=== PATIENT | male | born 1945 | race Caucasian/White ===

== ENCOUNTER → 2016-07-12 | Outpatient (REF) | payer MEDICARE, OTHER ==
[2016-07-12 12:29] LABS: BASO % 0.8 % (0.0-1.0); EOS # 0.2 K/mm3 (0.0-0.50); EOS % 2.6 % (0.0-3.0); LARGE UNSTAINED CELL # 0.1 K/mm3 (0.0-0.4); LARGE UNSTAINED CELL % 2.1 % (0.0-4.0); LYMPH # 1.5 K/mm3 (1.5-4.5); LYMPH % 20.6 % (24.0-44.0); MEAN CORPUSCULAR HEMOGLOBIN 32.8 pg (27.0-33.0); MEAN CORPUSCULAR HGB CONC 33.8 g/dl (32.0-36.5); MONO # 0.5 K/mm3 (0.0-0.8); MONO % 7.7 % (0.0-5.0); NEUTROPHILS # 4.3 K/mm3 (1.8-7.7); NEUTROPHILS % 66.1 % (36.0-66.0); PLATELET COUNT, AUTOMATED 247 k/mm3 (150-450); WHITE BLOOD COUNT 6.5 K/mm3 (4.0-10.0)
[2016-07-12 13:13] LABS: VITAMIN B12 LEVEL 375 PG/ML (247-911)
[2016-07-12 13:16] LABS: CHOLESTEROL LEVEL 165 MG/DL (<200); TOTAL PROTEIN 6.9 GM/DL (6.4-8.2); TRIGLYCERIDES LEVEL 83 MG/DL (<150)
[2016-07-17 11:50] LABS: ALBUMIN % 55.1 % (55.8-66.1); GAMMA GLOBULIN % 17.3 % (11.1-18.8)
== END ==
LOC: M SFHCPLAZ 09:57
PROVIDERS: ATTEND Family Medicine
DX: D50.9 Iron deficiency anemia, unspecified (principal); E78.5 Hyperlipidemia, unspecified

== ENCOUNTER → 2016-08-07 | Outpatient (CLI) | payer MEDICARE, OTHER ==
--- NOTE | 2016-08-10 15:00 | SLEEPHOME ---
DATE OF PROCEDURE: 08/07/2016 REFERRING PROVIDER: Dr. Geoff Downs INTERPRETATION: Diagnostic home sleep testing was performed due to concern for the obstructive sleep apnea syndrome. For testing, a NOX-T3 respiratory monitoring device was used. Continuous record was made of pulse, oxygen saturation, air flow, chest and abdominal strain, and body position. 8 hours and 31 minutes of data were reviewed. There were 7 hours and 23 minutes marked as time in bed. During the interval marked time in bed, there were 252 respiratory events identified of 10 seconds in duration or greater for a respiratory event index of 34.1. The events were more frequently central than obstructive. 110 central events, 91 obstructive events for a respiratory event index of 34.1. Baseline pulse rate was 57 beats per minute. Pulse rate ranged 43 to 80. Baseline saturation was 90%. Lowest oxygen saturation 76%. Testing was performed in both the supine and non-supine positions. IMPRESSION: Abnormal home sleep testing with repetitive respiratory events and oxygen desaturations to 76% with a respiratory event index of 34.1 is consistent with the sleep apnea syndrome. RECOMMENDATION: Given the frequency of central events, complex central apnea is suspected. The patient should be referred for formal sleep evaluation and in laboratory diagnostic testing to assess the significance of the central events appreciated. Pending this result, pressure titration with bilevel therapy and a backup rate may be necessary. MTDD
== END ==
LOC: M SLEEP HO 08:38
PROVIDERS: ATTEND Family Medicine
DX: G47.33 Obstructive sleep apnea (adult) (pediatric) (principal)

== ENCOUNTER → 2016-09-26 | Outpatient (CLI) | payer MEDICARE, OTHER ==
--- NOTE | 2016-09-30 12:32 | SLEEPCENT ---
DATE OF STUDY: 09/26/2016 ORDERED BY: Elizabeth Saleh Nocturnal polysomnography was performed for the titration of pressure therapy in this patient with a history of obstructive sleep apnea syndrome based on clinical grounds and confirmed by home testing which revealed a respiratory event index of 34.1. For testing, the patient was fit with a ResMed P10 AirFit full face mask of large size and 5 cm of water pressure were applied to the circuit and the lights were extinguished. 8 hours and 33 minutes of data were reviewed. There were 379 minutes of sleep identified. Sleep latency was short at 12 minutes. Rapid eye movement (REM) latency was delayed at 211 minutes. Sleep architecture improved with optimal pressure therapy. There were 3 REM periods appreciated. Overall sleep efficiency was 74.8%. The patient's electrocardiogram (EKG) showed an underlying sinus rhythm with ectopy and average heart rate 58 beats per minute. Electroencephalogram (EEG) showed reasonably normal waveforms for awake and sleep. Respiratory events were fully palliated with CPAP at a pressure of +9. CPAP tolerance was good. There was some limb activity and limb movement arousal index was 4.3. IMPRESSION: Obstructive sleep apnea (G47.33). RECOMMENDATION: Nightly use of pressure therapy at 9 cm of water.
== END ==
LOC: M SLEEP 19:20
PROVIDERS: ATTEND Nurse Practitioner Adult Health
DX: G47.33 Obstructive sleep apnea (adult) (pediatric) (principal)

== ENCOUNTER → 2016-10-10 | Outpatient (REF) | payer MEDICARE, OTHER | LOC: M SFHCPLAZ 10:13 | PROVIDERS: ATTEND Physician Assistant Medical | DX: G62.9 Polyneuropathy, unspecified (principal); M79.605 Pain in left leg; Z79.82 Long term (current) use of aspirin; Z79.899 Other long term (current) drug therapy | CPT/HCPCS: 36415; 83036; G0463 ==

== ENCOUNTER → 2016-10-11 | Outpatient (CLI) | payer MEDICARE, OTHER ==
--- NOTE | 2016-10-11 13:21 | REP ---
Left tibia-fibula four views: There are no comparisons. There are old healed fractures of the midshaft of the tibia and midshaft of the fibula. There are small osteochondromas arising from the shaft of the fibula medially. There is no acute fracture. There is a tiny foreign body in the soft tissues anterior to the mid tibia shaft. There is osteoarthritis at the tibiotalar articulation and at the kilo scaphoid articulation. There are no lytic, blastic or destructive changes. Signed by Gary Cooper MD 10/11/2016 11:49 A
--- NOTE | 2016-10-11 13:21 | REP ---
Lumbar spine five views: There are no comparisons. Vertebral body heights and alignment are normal. There is degenerative disc disease at every lumbar level. There is no spondylolysis. There is no spondylolisthesis. The pedicles are unremarkable. There is facet osteoarthritis. The sacroiliac articulations are unremarkable. Impression: Degenerative disc disease at every lumbar level. Facet osteoarthritis. Signed by Gary Cooper MD 10/11/2016 11:46 A
== END ==
LOC: M RAD 10:39
PROVIDERS: ATTEND Physician Assistant Medical
DX: M51.35 Other intervertebral disc degeneration, thoracolumbar region (principal); M51.36 Other intervertebral disc degeneration, lumbar region; M51.37 Other intervertebral disc degeneration, lumbosacral region; M46.99 Unspecified inflammatory spondylopathy, multiple sites in spine; M19.90 Unspecified osteoarthritis, unspecified site

== ENCOUNTER → 2016-11-13 | Outpatient (REF) | payer MEDICARE, OTHER | LOC: M SFHCPLAZ 11:20 | PROVIDERS: ATTEND Physician Assistant Medical | DX: M79.605 Pain in left leg (principal) | CPT/HCPCS: 36415; 82607; G0463 ==

== ENCOUNTER → 2016-11-20 | Outpatient (REF) | payer MEDICARE, OTHER ==
[2016-11-20 12:09] LABS: BASO # 0.1 10^3/uL (0.0-0.2); BASO % 1.1 % (0.0-1.0); EOS # 0.3 10^3/uL (0.0-0.50); EOS % 4.8 % (0.0-3.0); IMMATURE GRANULOCYTE % 0.3 % (0-0); LYMPH # 1.7 10^3/uL (1.5-4.5); LYMPH % 26.7 % (24.0-44.0); MEAN CORPUSCULAR HEMOGLOBIN 31.4 pg (27.0-33.0); MEAN CORPUSCULAR HGB CONC 32.5 g/dl (32.0-36.5); MEAN CORPUSCULAR VOLUME 96.4 fl (80.0-96.0); MONO # 0.7 10^3/uL (0.0-0.8); MONO % 10.5 % (0.0-5.0); NEUTROPHILS # 3.6 10^3/uL (1.8-7.7); NEUTROPHILS % 56.6 % (36.0-66.0); PLATELET COUNT, AUTOMATED 250 10^3/uL (150-450); RED CELL DISTRIBUTION WIDTH 13.6 % (11.5-14.5); WHITE BLOOD COUNT 6.3 10^3/uL (4.0-10.0)
[2016-11-20 13:27] LABS: ALBUMIN 3.6 GM/DL (3.2-5.2); ALBUMIN/GLOBULIN RATIO 1.09 (1.00-1.93); ALKALINE PHOSPHATASE 96 U/L (45-117); ALT/SGPT 17 U/L (12-78); ANION GAP 6 MEQ/L (8-16); AST/SGOT 13 U/L (15-37); BILIRUBIN,TOTAL 0.4 MG/DL (0.2-1.0); BLOOD UREA NITROGEN 16 MG/DL (7-18); CALCIUM LEVEL 9.3 MG/DL (8.8-10.2); CARBON DIOXIDE LEVEL 28 MEQ/L (21-32); CHLORIDE LEVEL 105 MEQ/L (98-107); CHOLESTEROL LEVEL 123 MG/DL (<200); FERRITIN 92 NG/ML (26-388); GLOMERULAR FILTRATION RATE > 60.0 (>42); GLUCOSE, FASTING 100 MG/DL (83-110); PERCENT SATURATION 17.3 % (19.7-50.0); POTASSIUM SERUM 4.2 MEQ/L (3.5-5.1); SODIUM LEVEL 139 MEQ/L (136-145); TOTAL IRON BINDING CAPACITY 283 UG/DL (250-450); TOTAL PROTEIN 6.9 GM/DL (6.4-8.2); TRIGLYCERIDES LEVEL 79 MG/DL (<150)
== END ==
LOC: M SFHCPLAZ 08:38
PROVIDERS: ATTEND Family Medicine
DX: D50.9 Iron deficiency anemia, unspecified (principal); E78.5 Hyperlipidemia, unspecified; N18.2 Chronic kidney disease, stage 2 (mild); Z12.5 Encounter for screening for malignant neoplasm of prostate
CPT/HCPCS: 80053; 80061; 82306; 82550; 82728; 83550; 83970; 85025; 86140; G0103

== ENCOUNTER → 2017-07-11 | Outpatient (REF) | payer MEDICARE, OTHER ==
[2017-07-11 12:00] LABS: BASO # 0.1 10^3/uL (0.0-0.2); BASO % 1.3 % (0.0-1.0); EOS # 0.2 10^3/uL (0.0-0.50); EOS % 3.3 % (0.0-3.0); HEMATOCRIT 42.8 % (42.0-52.0); HEMOGLOBIN 13.9 g/dl (13.5-17.5); IMMATURE GRANULOCYTE % 0.3 % (0-3.0); LYMPH # 1.5 10^3/uL (1.5-4.5); LYMPH % 22.9 % (24.0-44.0); MEAN CORPUSCULAR HEMOGLOBIN 31.9 pg (27.0-33.0); MEAN CORPUSCULAR HGB CONC 32.5 g/dl (32.0-36.5); MEAN CORPUSCULAR VOLUME 98.2 fl (80.0-96.0); MONO # 0.6 10^3/uL (0.0-0.8); MONO % 9.4 % (0.0-5.0); NEUTROPHILS % 62.8 % (36.0-66.0); PLATELET COUNT, AUTOMATED 271 10^3/uL (150-450); RED BLOOD COUNT 4.36 10^6/uL (4.30-6.10); RED CELL DISTRIBUTION WIDTH 13.2 % (11.5-14.5); WHITE BLOOD COUNT 6.4 10^3/uL (4.0-10.0)
[2017-07-11 12:01] LABS: HEMATOCRIT 42.8 % (42.0-52.0)
[2017-07-11 12:22] LABS: VITAMIN B12 LEVEL 995 PG/ML (247-911)
[2017-07-11 12:24] LABS: FERRITIN 106 NG/ML (26-388); IRON (FE) 72 UG/DL (65-175); PERCENT SATURATION 25.7 % (19.7-50.0); TOTAL IRON BINDING CAPACITY 280 UG/DL (250-450)
[2017-07-11 12:51] LABS: ESTIMATED AVERAGE GLUCOSE 134 MG/DL (60-110); HEMOGLOBIN A1c 6.3 %
[2017-07-12 12:06] LABS: RBC FOLATE 441.6 NG/ML (280-791)
== END ==
LOC: M SFHCPLAZ 08:43
DX: D50.9 Iron deficiency anemia, unspecified (principal); E53.8 Deficiency of other specified B group vitamins; Z12.5 Encounter for screening for malignant neoplasm of prostate
CPT/HCPCS: 83550

== ENCOUNTER → 2017-07-18 | Outpatient (REF) | payer MEDICARE, OTHER ==
[2017-07-18 12:26] LABS: D-DIMER QUANT 513.2 ng/ml (<500)
[2017-07-18 13:30] LABS: ALBUMIN 3.6 GM/DL (3.2-5.2); ANION GAP 6 MEQ/L (8-16); BLOOD UREA NITROGEN 16 MG/DL (7-18); CALCIUM LEVEL 8.8 MG/DL (8.8-10.2); CARBON DIOXIDE LEVEL 29 MEQ/L (21-32); CHLORIDE LEVEL 106 MEQ/L (98-107); CREATININE FOR GFR 1.11 MG/DL (0.70-1.30); GLOMERULAR FILTRATION RATE > 60.0 (>42); GLUCOSE, FASTING 89 MG/DL (70-100); MAGNESIUM LEVEL 2.2 MG/DL (1.8-2.4); NT-PRO BNP 71 PG/ML (<125); PHOSPHORUS LEVEL 3.8 MG/DL (2.5-4.9); POTASSIUM SERUM 4.4 MEQ/L (3.5-5.1); SODIUM LEVEL 141 MEQ/L (136-145); TROPONIN I < 0.02 NG/ML (< 0.10)
== END ==
LOC: M SFHCPLAZ 11:33
DX: I50.32 Chronic diastolic (congestive) heart failure (principal)
CPT/HCPCS: 83735

== ENCOUNTER 2017-10-16 10:04 | Day surgery (SDC) | payer MEDICARE, OTHER ==
[2017-10-16] MEDS: NS 1,000 ML IV (10:15)
[2017-10-16] MEDS ORDERED: LIDOCAINE 2% INJ 100 MG/5 ML SDV (FOR ANES.) As Ordered (11:53)
[2017-10-16] MEDS ORDERED: PROPOFOL 200 MG/20 ML VIAL As Ordered (11:53)
== END 2017-10-16 13:00 | disposition home or self-care (01) ==
LOC: M OPP 10:04
DX: R12 Heartburn (principal); K22.70 Barrett's esophagus without dysplasia; K22.8 Other specified diseases of esophagus; K44.9 Diaphragmatic hernia without obstruction or gangrene; I10 Essential (primary) hypertension; E78.5 Hyperlipidemia, unspecified; M19.90 Unspecified osteoarthritis, unspecified site; G47.30 Sleep apnea, unspecified; R06.83 Snoring; Z91.041 Radiographic dye allergy status; Z79.82 Long term (current) use of aspirin; Z79.899 Other long term (current) drug therapy
CPT/HCPCS: 43239

== ENCOUNTER → 2017-11-22 | Outpatient (REF) | payer MEDICARE, OTHER ==
[2017-11-22 12:38] LABS: APPEARANCE, URINE CLEAR (CLEAR); BACTERIA, URINE AUTO NEGATIVE (NEGATIVE); BILIRUBIN, URINE AUTO NEGATIVE (NEGATIVE); BLOOD, URINE BLOOD NEGATIVE (NEGATIVE); COLOR, URINE YELLOW (YELLOW); GLUCOSE, URINE (UA) AUTO NEGATIVE (NEGATIVE); KETONE, URINE AUTO NEGATIVE (NEGATIVE); LEUKOCYTE ESTERASE, URINE AUTO NEGATIVE (NEGATIVE); MUCUS, URINE SMALL (NEGATIVE); NITRITE, URINE AUTO NEGATIVE (NEGATIVE); PROTEIN, URINE AUTO NEGATIVE (NEGATIVE); RBC, URINE AUTO 1 /HPF (0-3); SQUAMOUS EPITHELIAL CELL UR AU 0 /HPF (0-6); WBC, URINE AUTO 0 /HPF (0-3)
[2017-11-22 13:36] LABS: ALBUMIN 3.6 GM/DL (3.2-5.2); ALBUMIN/GLOBULIN RATIO 1.09 (1.00-1.93); ALKALINE PHOSPHATASE 91 U/L (45-117); ALT/SGPT 17 U/L (12-78); ANION GAP 9 MEQ/L (8-16); AST/SGOT 13 U/L (7-37); BILIRUBIN,TOTAL 0.8 MG/DL (0.2-1.0); BLOOD UREA NITROGEN 20 MG/DL (7-18); C REACTIVE PROTEIN QUANTITATIV 0.84 MG/DL (0.00-0.30); CARBON DIOXIDE LEVEL 24 MEQ/L (21-32); CHLORIDE LEVEL 109 MEQ/L (98-107); CHOLESTEROL LEVEL 116 MG/DL (<200); CHOLESTEROL RISK RATIO 2.829 (<5); CPK CREATINE PHOSPHOKINASE 66 U/L (39-308); CREATININE FOR GFR 0.98 MG/DL (0.70-1.30); FREE T4 0.92 NG/DL (0.76-1.46); GLOMERULAR FILTRATION RATE > 60.0 (>42); GLUCOSE, FASTING 91 MG/DL (70-100); HDL CHOLESTEROL 41 MG/DL (>40); NON-HDL-C 75 MG/DL; POTASSIUM SERUM 4.2 MEQ/L (3.5-5.1); SODIUM LEVEL 142 MEQ/L (136-145); TOTAL PROTEIN 6.9 GM/DL (6.4-8.2); TRIGLYCERIDES LEVEL 86 MG/DL (<150)
[2017-11-22 13:37] LABS: LDL CHOLESTEROL 58 MG/DL (<100)
[2017-11-22 13:40] LABS: MALB URINE SIEMENS 7.9 MG/L
[2017-11-22 13:42] LABS: MAU/CREAT RATIO 4.9 MCG/MG (0.0-30.0)
[2017-11-22 14:46] LABS: ESTIMATED AVERAGE GLUCOSE 128 MG/DL (60-110); HEMOGLOBIN A1c 6.1 %
[2017-11-23 15:10] LABS: INSULIN LEVEL 12.2 uIU/mL (2.6-24.9)
== END ==
LOC: M SFHCPLAZ 07:59
DX: R73.01 Impaired fasting glucose (principal); E07.9 Disorder of thyroid, unspecified
CPT/HCPCS: 82550

== ENCOUNTER → 2018-07-07 | Outpatient (REF) | payer MEDICARE, OTHER ==
[~2018-07-07] MED LIST: ASPI81TA26 PO; ATOR1TAB21 PO; LISI-542 PO; VITA100067 PO; VITA500T3 PO
[2018-07-07 10:07] LABS: BASO # 0.1 10^3/uL (0.0-0.2); BASO % 0.9 % (0.0-1.0); EOS # 0.1 10^3/uL (0.0-0.50); EOS % 2.2 % (0.0-3.0); HEMOGLOBIN 11.8 g/dl (13.5-17.5); LYMPH # 1.2 10^3/uL (1.5-4.5); MEAN CORPUSCULAR HGB CONC 31.9 g/dl (32.0-36.5); MEAN CORPUSCULAR VOLUME 97.1 fl (80.0-96.0); MONO # 0.6 10^3/uL (0.0-0.8); MONO % 10.2 % (0.0-5.0); NEUTROPHILS # 3.6 10^3/uL (1.8-7.7); NEUTROPHILS % 65.3 % (36.0-66.0); PLATELET COUNT, AUTOMATED 248 10^3/uL (150-450); RED BLOOD COUNT 3.81 10^6/uL (4.30-6.10); WHITE BLOOD COUNT 5.5 10^3/uL (4.0-10.0)
[2018-07-07 10:27] LABS: ALBUMIN 3.3 GM/DL (3.2-5.2); ALT/SGPT 15 U/L (12-78); BILIRUBIN,TOTAL 0.5 MG/DL (0.2-1.0); BLOOD UREA NITROGEN 19 MG/DL (7-18); CALCIUM LEVEL 8.7 MG/DL (8.8-10.2); CARBON DIOXIDE LEVEL 27 MEQ/L (21-32); CHLORIDE LEVEL 107 MEQ/L (98-107); GLOMERULAR FILTRATION RATE > 60.0 (>42); GLUCOSE, FASTING 106 MG/DL (70-100); MAGNESIUM LEVEL 2.3 MG/DL (1.8-2.4); POTASSIUM SERUM 4.3 MEQ/L (3.5-5.1); SODIUM LEVEL 141 MEQ/L (136-145); TOTAL PROTEIN 6.9 GM/DL (6.4-8.2); VITAMIN B12 LEVEL 486 PG/ML (247-911)
== END ==
LOC: M SFHCPLAZ 07:53
PROVIDERS: ATTEND Family Medicine
DX: E53.8 Deficiency of other specified B group vitamins (principal); I50.32 Chronic diastolic (congestive) heart failure; Z12.5 Encounter for screening for malignant neoplasm of prostate
CPT/HCPCS: 36415; 80053; 82607; 83735; 85025; 85046; G0103

== ENCOUNTER → 2018-07-22 | Outpatient (REF) | payer MEDICARE, OTHER ==
[2018-07-22 12:09] LABS: BASO # 0.1 10^3/uL (0.0-0.2); EOS # 0.2 10^3/uL (0.0-0.50); EOS % 3.5 % (0.0-3.0); HEMATOCRIT 39.1 % (42.0-52.0); HEMOGLOBIN 12.5 g/dl (13.5-17.5); LYMPH # 1.6 10^3/uL (1.5-4.5); MEAN CORPUSCULAR HEMOGLOBIN 30.3 pg (27.0-33.0); MEAN CORPUSCULAR VOLUME 94.9 fl (80.0-96.0); MONO # 0.6 10^3/uL (0.0-0.8); MONO % 9.3 % (0.0-5.0); NEUTROPHILS # 3.6 10^3/uL (1.8-7.7); NEUTROPHILS % 59.9 % (36.0-66.0); PLATELET COUNT, AUTOMATED 262 10^3/uL (150-450); RED BLOOD COUNT 4.12 10^6/uL (4.30-6.10)
[2018-07-22 12:39] LABS: CHOLESTEROL LEVEL 117 MG/DL (<200); CHOLESTEROL RISK RATIO 2.785 (<5); FERRITIN 46 NG/ML (26-388); HDL CHOLESTEROL 42 MG/DL (>40); LDL CHOLESTEROL 65 MG/DL (<100); NON-HDL-C 75 MG/DL; TOTAL PROTEIN 7.5 GM/DL (6.4-8.2); TRIGLYCERIDES LEVEL 52 MG/DL (<150); VITAMIN B12 LEVEL 1049 PG/ML (247-911)
[2018-07-22 13:14] LABS: HEMOGLOBIN A1c 6.1 %
[2018-07-23 10:12] LABS: ERYTHROPOIETIN 21.4 mIU/mL (2.6-18.5)
[2018-07-24 11:08] LABS: ALBUMIN 4.01 GM/DL (3.29-5.55); ALBUMIN % 53.5 % (55.8-66.1); ALPHA-1-GLOBULIN % 4.8 % (2.9-4.9); ALPHA-1-GLOBULINS 0.36 GM/DL (0.17-0.41); ALPHA-2-GLOBULINS 0.98 GM/DL (0.42-0.99); ALPHA-2-GLOBULINS % 13.1 % (7.1-11.8); BETA-1-GLOBULINS 0.47 GM/DL (0.28-0.60); BETA-1-GLOBULINS % 6.2 % (4.7-7.2); BETA-2-GLOBULINS 0.38 GM/DL (0.19-0.55); BETA-2-GLOBULINS % 5.1 % (3.2-6.5); GAMMA GLOBULIN % 17.3 % (11.1-18.8)
== END ==
LOC: M SFHCPLAZ 08:43
PROVIDERS: ATTEND Family Medicine
DX: D50.9 Iron deficiency anemia, unspecified (principal); R73.01 Impaired fasting glucose

== ENCOUNTER 2018-08-25 18:18 | Emergency (ER) | payer MEDICARE, OTHER ==
[~2018-08-25] VITALS: Ht 175.3 cm; Wt 111.4 kg
[~2018-08-25 18:18] MED LIST changes: +CYAN500T8 PO; -VITA500T3 PO
[2018-08-25] MEDS ORDERED: FERR325T18 PO (18:29)
[2018-08-25] MEDS ORDERED: FURO20TA2 PO (18:29)
[2018-08-25 19:00] LABS: BASO # 0.1 10^3/uL (0.0-0.2); BASO % 0.7 % (0.0-1.0); EOS # 0.1 10^3/uL (0.0-0.50); EOS % 1.2 % (0.0-3.0); HEMATOCRIT 37.8 % (42.0-52.0); HEMOGLOBIN 12.5 g/dl (13.5-17.5); LYMPH # 1.3 10^3/uL (1.5-4.5); LYMPH % 14.6 % (24.0-44.0); MEAN CORPUSCULAR HEMOGLOBIN 30.6 pg (27.0-33.0); MEAN CORPUSCULAR HGB CONC 33.1 g/dl (32.0-36.5); MEAN CORPUSCULAR VOLUME 92.6 fl (80.0-96.0); MONO # 0.6 10^3/uL (0.0-0.8); MONO % 7.5 % (0.0-5.0); NEUTROPHILS # 6.5 10^3/uL (1.8-7.7); NEUTROPHILS % 75.8 % (36.0-66.0); PLATELET COUNT, AUTOMATED 267 10^3/uL (150-450); RED BLOOD COUNT 4.08 10^6/uL (4.30-6.10); WHITE BLOOD COUNT 8.6 10^3/uL (4.0-10.0)
[2018-08-25 19:27] LABS: ALBUMIN 3.4 GM/DL (3.2-5.2); ALT/SGPT 15 U/L (12-78); BILIRUBIN,DIRECT 0.2 MG/DL (0.0-0.2); BILIRUBIN,TOTAL 0.5 MG/DL (0.2-1.0); BLOOD UREA NITROGEN 18 MG/DL (7-18); CALCIUM LEVEL 8.2 MG/DL (8.8-10.2); CARBON DIOXIDE LEVEL 26 MEQ/L (21-32); CHLORIDE LEVEL 107 MEQ/L (98-107); CREATININE FOR GFR 1.25 MG/DL (0.70-1.30); GLOMERULAR FILTRATION RATE > 60.0 (>42); GLUCOSE, FASTING 143 MG/DL (70-100); LIPASE 134 U/L (73-393); POTASSIUM SERUM 3.7 MEQ/L (3.5-5.1); SODIUM LEVEL 140 MEQ/L (136-145); TOTAL PROTEIN 7.2 GM/DL (6.4-8.2)
[2018-08-25] MEDS: READI-CAT 2 PO SCH ×2 (20:14→21:22)
--- NOTE | 2018-08-26 00:09 | REPVR ---
EXAM: CT Abdomen and Pelvis Without Contrast EXAM DATE/TIME: 08/25/2018 7:52 PM CLINICAL HISTORY: 72 years old, male; Abdominal pain; Localized; Left Lower Quadrant (LLQ); Additional Info: LLQ pain; R/O diverticulitis TECHNIQUE: Imaging protocol: Axial computed tomography images of the abdomen and pelvis without contrast. Coronal and sagittal reformatted images were created and reviewed. Radiation optimization: All CT scans at this facility use at least one of these dose optimization techniques: automated exposure control; mA and/or kV adjustment per patient size (includes targeted exams where dose is matched to clinical indication); or iterative reconstruction. COMPARISON: CR Spine. Lumbosacral, complete 10/11/2016 10:48 AM FINDINGS: Lungs: Mild subpleural nodular densities in the posterior basal right lower lobe measuring up to 3 x 6 mm. Coronary arteries: Moderate coronary artery calcification. Liver: Hypodense ill-defined lesion in the right hepatic lobe measuring 9 mm. Series 201 image 29. Gallbladder and bile ducts: Normal. No calcified stones. No ductal dilation. Pancreas: Normal. No ductal dilation. Spleen: Normal. No splenomegaly. Adrenals: Normal. No mass. Kidneys and ureters: Multiple parapelvic renal cysts bilaterally measuring up to 2.9 cm. No hydronephrosis bilaterally. Stomach and bowel: Moderate stool in the colon. Diffuse thickening of the left colon. Pericolonic haziness of the left colon. Appendix: Appendix is normal. Intraperitoneal space: Normal. No free air. No significant fluid collection. Vasculature: Moderate calcified atherosclerotic disease. Ascending thoracic aorta measures up to 4.1 cm. Thoracic aorta is not fully imaged on this study. No abdominal aortic aneurysm. Lymph nodes: Normal. No enlarged lymph nodes. Bladder: Unremarkable as visualized. Reproductive: Prostate is normal in size. Bones/joints: Moderate degenerative changes of the hips. Moderate degenerative spine. No acute fracture. Soft tissues: Mild gynecomastia bilaterally. Small umbilical hernia containing fat. There is no evidence of strangulation. IMPRESSION: 1. Diffuse thickening of the left colon. Consistent with infectious versus inflammatory versus ischemic colitis. 2. Hypodense ill-defined lesion in the right hepatic lobe. For low risk patients, recommend follow up CT or MRI in 6 months. For average risk patients, recommend multiphasic MRI in 6 months. For high risk patients, recommend multiphasic MRI. 3. Parapelvic renal cysts bilaterally. No followup is necessary. 4. Mild gynecomastia. 5. Dilatation of the ascending thoracic aorta. 6. Subpleural nodular densities in the right lower lobe. No followup is necessary. 7. Additional findings as described. COMMENT: Consistent with the [employer]'s Incidental Findings Committee Report (J Am Teagan Radiol 2010): Unless the patient's specific circumstances suggest otherwise, any liver lesion 0.5 cm or less, any cystic kidney lesion less than 1.0 cm, and/or any adrenal lesion 1.0 cm or less not otherwise characterized in this report as possessing suspicious or indeterminate imaging features is/are highly likely to be benign and do not require follow-up imaging or biopsy. Electronically signed by: Deanna Parker On 08/26/2018 00:09:08 AM
[2018-08-26] MEDS ORDERED: NORC1TAB7 PO (00:53)
[2018-08-26] MEDS ORDERED: CIPR-249 PO (00:53)
[2018-08-26] MEDS ORDERED: ONDA4TAB6 PO (00:53)
[2018-08-26] MEDS ORDERED: FLAG500T PO (00:53)
[2018-08-26] MEDS ORDERED: CIPROFLOXACIN 500 MG TAB PO ONE (01:00)
[2018-08-26] MEDS ORDERED: metroNIDAZOLE (FLAGYL) 500 MG TAB PO ONE (01:00)
[2018-08-26] MEDS ORDERED: NORCO 5/325MG TABLET (BULK FOR ED) PO ONE (01:00)
[2018-08-26 01:08] VITALS: BP 127/68
--- NOTE | 2018-08-27 10:52 | ED PDOC ---
Post-Departure Follow-Up dr abbott faxed formal report of ct abd/p for fu Wesely Ramirez MD Aug 27, 2018 10:52
== END 2018-08-26 01:09 | disposition home or self-care (01) ==
LOC: M ED 18:18
DX: A09 Infectious gastroenteritis and colitis, unspecified (principal); N28.1 Cyst of kidney, acquired; R91.8 Other nonspecific abnormal finding of lung field; E78.5 Hyperlipidemia, unspecified; N62 Hypertrophy of breast; Z79.82 Long term (current) use of aspirin; Z86.79 Personal history of other diseases of the circulatory system; Z91.041 Radiographic dye allergy status

== ENCOUNTER 2018-09-30 09:38 | Day surgery (SDC) | payer MEDICARE, OTHER ==
[~2018-09-30] VITALS: Ht 172.7 cm; Wt 109.8 kg
[~2018-09-30 09:38] MED LIST changes: +CIPR-249 PO; +FERR325T18 PO; +FLAG500T PO; +FURO20TA2 PO; +NORC1TAB7 PO; +NS 1,000 ML IV ONE; +OMEP-221 PO; +ONDA4TAB6 PO
[2018-09-30] MEDS ORDERED: propofoL 200 MG/20 ML VIAL As Ordered ONE ×3 (10:47→11:06)
[2018-09-30] MEDS ORDERED: LIDOCAINE 2% INJ 100 MG/5 ML SDV (FOR ANES.) As Ordered ONE (10:48)
--- NOTE | 2018-09-30 11:16 | ROOR ---
Patient Name: Chandan Delgado Procedure Date: 09/30/2018 10:59 AM Date of : 1945 Age: 73 Room: [facility] Gender: Male Note Status: Finalized Procedure: Upper Endoscopy + Biopsies Indications: Follow-up of Lemons's esophagus Providers: Felice Morales MD Referring MD: Geoff Downs MD Requesting Provider: Medicines: Monitored Anesthesia Care Complications: No immediate complications. Procedure: Pre-Anesthesia Assessment: - The heart rate, respiratory rate, oxygen saturations, blood pressure, adequacy of pulmonary ventilation, and response to care were monitored throughout the procedure. The Endoscope was introduced through the mouth, and advanced to the second part of duodenum. The upper GI endoscopy was accomplished without difficulty. The patient tolerated the procedure well. Findings: The Z-line was irregular and was found 40 cm from the incisors. Multiple biopsies were obtained with cold forceps for evaluation to rule out Lemons's Esophagus randomly at the gastroesophageal junction. A medium-sized hiatal hernia was present. No other significant abnormalities were identified in a careful examination of the stomach. The exam of the duodenum was otherwise normal. Impression: - Z-line irregular, 40 cm from the incisors. - Medium-sized hiatal hernia. - Multiple biopsies were obtained at the gastroesophageal junction. - The examination was otherwise normal. Recommendation: - Patient has a contact number available for emergencies. The signs and symptoms of potential delayed complications were discussed with the patient. Return to normal activities tomorrow. Written discharge instructions were provided to the patient. - High fiber diet. - Discharge patient to home. - Follow an antireflux regimen. - Continue present medications. - Await pathology results. - Telephone GI clinic for pathology results in 1 week. - Return to referring physician. - The findings and recommendations were discussed with the patient's family. Felice Morales MD Felice Morales MD 09/30/2018 11:15:49 AM Electronically signed by Felice Morales MD Number of Addenda: 0 Note Initiated On: 09/30/2018 10:59 AM Estimated Blood Loss: Estimated blood loss: none.
--- NOTE | 2018-09-30 11:29 | ROOR ---
Patient Name: Chandan Delgado Procedure Date: 09/30/2018 10:59 AM Date of : 1945 Age: 73 Room: [facility] Gender: Male Note Status: Finalized Procedure: Total Colonoscopy to Cecum Indications: Abdominal pain in the left lower quadrant Providers: Felice Morales MD Referring MD: Geoff Downs MD Requesting Provider: Medicines: Monitored Anesthesia Care Complications: No immediate complications. Procedure: Pre-Anesthesia Assessment: - The heart rate, respiratory rate, oxygen saturations, blood pressure, adequacy of pulmonary ventilation, and response to care were monitored throughout the procedure. The Colonoscope was introduced through the anus and advanced to the cecum, identified by appendiceal orifice and ileocecal valve. The colonoscopy was performed without difficulty. The patient tolerated the procedure well. The quality of the bowel preparation was excellent. Findings: The perianal and digital rectal examinations were normal. Non-bleeding internal hemorrhoids were found during retroflexion. The hemorrhoids were small and Grade I (internal hemorrhoids that do not prolapse). Scattered small-mouthed diverticula were found in the recto-sigmoid colon, sigmoid colon and descending colon. The exam was otherwise without abnormality on direct and retroflexion views. One small angioectasia was found in the proximal ascending colon. Impression: - Non-bleeding internal hemorrhoids. - Diverticulosis in the recto-sigmoid colon, in the sigmoid colon and in the descending colon. - The examination was otherwise normal on direct and retroflexion views. - One colonic angioectasia. - No specimens collected. - The exam was otherwise normal to the cecum. Recommendation: - Patient has a contact number available for emergencies. The signs and symptoms of potential delayed complications were discussed with the patient. Return to normal activities tomorrow. Written discharge instructions were provided to the patient. - High fiber diet. - Discharge patient to home. - Continue present medications. - Repeat colonoscopy for symptoms only. - Return to referring physician. - The findings and recommendations were discussed with the patient's family. Felice Morales MD Felice Morales MD 09/30/2018 11:29:36 AM Electronically signed by Felice Morales MD Number of Addenda: 0 Note Initiated On: 09/30/2018 10:59 AM Estimated Blood Loss: Estimated blood loss: none.
[2018-09-30 11:50] VITALS: BP 140/82
== END 2018-09-30 12:09 | disposition home or self-care (01) ==
LOC: M OPP 09:38
PROVIDERS: ATTEND Internal Medicine Gastroenterology
DX: K57.30 Diverticulosis of large intestine without perforation or abscess without bleeding (principal); K64.0 First degree hemorrhoids; K55.20 Angiodysplasia of colon without hemorrhage; K22.8 Other specified diseases of esophagus; K44.9 Diaphragmatic hernia without obstruction or gangrene; K22.70 Barrett's esophagus without dysplasia; R10.32 Left lower quadrant pain

== ENCOUNTER → 2019-07-24 | Outpatient (REF) | payer MEDICARE, OTHER ==
[~2019-07-24] MED LIST changes: -NS 1,000 ML IV ONE
[2019-07-24 13:03] LABS: BASO # 0.1 10^3/uL (0.0-0.2); BASO % 1.1 % (0.0-1.0); EOS # 0.2 10^3/uL (0.0-0.5); EOS % 2.6 % (0.0-3.0); HEMATOCRIT 39.6 % (42.0-52.0); HEMOGLOBIN 12.4 g/dl (13.5-17.5); LYMPH # 1.5 10^3/uL (1.5-5.0); MEAN CORPUSCULAR HEMOGLOBIN 29.8 pg (27.0-33.0); MEAN CORPUSCULAR HGB CONC 31.3 g/dl (32.0-36.5); MEAN CORPUSCULAR VOLUME 95.2 fl (80.0-96.0); MONO # 0.6 10^3/uL (0.0-0.8); MONO % 10.3 % (0.0-5.0); NEUTROPHILS # 3.8 10^3/uL (1.5-8.5); NEUTROPHILS % 61.7 % (36.0-66.0); PLATELET COUNT, AUTOMATED 272 10^3/uL (150-450); RED BLOOD COUNT 4.16 10^6/uL (4.30-6.10); WHITE BLOOD COUNT 6.2 10^3/uL (4.0-10.0)
[2019-07-24 13:39] LABS: ALBUMIN 3.4 GM/DL (3.2-5.2); ALT/SGPT 14 U/L (12-78); BILIRUBIN,TOTAL 0.6 MG/DL (0.2-1.0); BLOOD UREA NITROGEN 16 MG/DL (7-18); CALCIUM LEVEL 8.7 MG/DL (8.8-10.2); CARBON DIOXIDE LEVEL 28 MEQ/L (21-32); CHLORIDE LEVEL 107 MEQ/L (98-107); GLOMERULAR FILTRATION RATE > 60.0 (>42); GLUCOSE, FASTING 89 MG/DL (70-100); NT-PRO BNP 56 PG/ML (<125); POTASSIUM SERUM 4.2 MEQ/L (3.5-5.1); SODIUM LEVEL 141 MEQ/L (136-145)
[2019-07-24 14:15] LABS: HEMOGLOBIN A1c 6.4 %
== END ==
LOC: M SFHCPLAZ 11:21
PROVIDERS: ATTEND Family Medicine
DX: R73.01 Impaired fasting glucose (principal); D50.9 Iron deficiency anemia, unspecified; Z12.5 Encounter for screening for malignant neoplasm of prostate; I50.32 Chronic diastolic (congestive) heart failure
CPT/HCPCS: 36415; 80053; 83036; 83880; 85025; 85046; G0103; G0463

== ENCOUNTER → 2019-08-10 | Outpatient (CLI) | payer MEDICARE, OTHER ==
[~2019-08-10] MED LIST changes: +PROHANCE 279.3MG/ML 15ML VIAL As Ordered ONE; +PROHANCE 279.3MG/ML 5ML VIAL As Ordered ONE
--- NOTE | 2019-08-10 14:39 | REP ---
MRI ABDOMEN AND LIVER WITHOUT AND WITH IV CONTRAST: Multiphase study. HISTORY: Hypodense ill-defined lesion in the right lobe of the liver on CT study from August 25, 2018. Followup recommended. MRI CONTRAST DOSE: 20 mL of intravenous ProHance. MRI TECHNIQUE: Axial and coronal imaging planes utilized. T1- and T2-weighted scans were obtained and include spin echo, fast spin echo, diffusion weighted scans, in- and [id number], and dynamically acquired sequential post contrast images. MRI FINDINGS: There are parapelvic cysts in the kidneys bilaterally unchanged. There is 7 mm simple cyst in the right lobe of the liver near the dome of the diaphragm which is felt to correspond with the CT findings. No other focal liver lesion is seen on pre- or postcontrast imaging. Diffusion weighted scans are unremarkable. Dynamically acquired sequential post contrast images show no significant liver lesion. The spleen is normal in size homogeneous in texture. No abnormality is noted in the pancreas. No renal mass lesion is observed. No abnormalities noted in the gallbladder. IMPRESSION: Bilateral parapelvic renal cysts. 7 mm cyst in the right lobe of the liver unchanged in size. Otherwise negative. Electronically Signed by Chema Mejias MD 08/10/2019 02:59 P
== END ==
LOC: M RAD 10:09
PROVIDERS: ATTEND Family Medicine
DX: K76.9 Liver disease, unspecified (principal); N28.1 Cyst of kidney, acquired; K76.89 Other specified diseases of liver
CPT/HCPCS: 74183; A9576

== ENCOUNTER 2020-07-31 12:17 | Emergency (ER) | payer MEDICARE, OTHER ==
[~2020-07-31] VITALS: Ht 175.3 cm; Wt 117.6 kg
[~2020-07-31 12:17] MED LIST changes: +CYAN500T14 PO; -CYAN500T8 PO; -LISI-542 PO; +LISI-898 PO; -PROHANCE 279.3MG/ML 15ML VIAL As Ordered ONE; -PROHANCE 279.3MG/ML 5ML VIAL As Ordered ONE
--- NOTE | 2020-07-31 13:26 | REP ---
INDICATION: swelling COMPARISON: None. TECHNIQUE: Shell scale and color Doppler evaluation using linear high frequency transducer. FINDINGS: Ultrasound examination of the right lower extremity deep venous structures from the common femoral vein through the calf/ankle to include the peroneal, and tibial veins demonstrates normal compressibility flow and wave patterns in response to respiration and augmentation. There is no evidence for deep venous thrombosis. Contralateral CFV is patent and normal. Three complex collections in the region of the popliteal fossa are identified measuring roughly 6.3 x 1.2 x 4.8 cm, 4.9 x 1.5 x 1.7 cm, and 3.0 x 2.4 x 3.0 cm. IMPRESSION: No evidence for deep venous thrombosis. Multiple complex fluid collections in the popliteal fossa region nonspecific and require clinical/physical/historical correlation. <Electronically signed by Craig Clayton > 07/31/20 [id number]
[2020-07-31] MEDS ORDERED: ACETAMINOPHEN 500 MG TAB PO ONE (13:45)
--- NOTE | 2020-07-31 14:17 | REP ---
INDICATION: short of breath COMPARISON: 10/10/2010 TECHNIQUE: PA and lateral. FINDINGS: The mediastinum and cardiac silhouette are normal. The lung leyva are clear and without acute consolidation, effusion, or pneumothorax. The skeletal structures are intact and normal. IMPRESSION: No acute cardiopulmonary process. <Electronically signed by Craig Clayton > 07/31/20 [id number]
[2020-07-31 14:19] LABS: BASO # 0.1 10^3/uL (0.0-0.2); EOS # 0.2 10^3/uL (0.0-0.5); EOS % 3.2 % (0.0-3.0); HEMATOCRIT 39.5 % (42.0-52.0); HEMOGLOBIN 12.6 g/dl (13.5-17.5); LYMPH # 1.2 10^3/uL (1.5-5.0); LYMPH % 19.9 % (24.0-44.0); MEAN CORPUSCULAR HEMOGLOBIN 30.8 pg (27.0-33.0); MEAN CORPUSCULAR HGB CONC 31.9 g/dl (32.0-36.5); MEAN CORPUSCULAR VOLUME 96.6 fl (80.0-96.0); MONO # 0.7 10^3/uL (0.0-0.8); MONO % 10.8 % (2.0-8.0); NEUTROPHILS # 3.9 10^3/uL (1.5-8.5); NEUTROPHILS % 64.8 % (36.0-66.0); PLATELET COUNT, AUTOMATED 289 10^3/uL (150-450); RED BLOOD COUNT 4.09 10^6/uL (4.30-6.10)
[2020-07-31 14:29] LABS: INR 0.96; PARTIAL THROMBOPLASTIN TIME 27.8 SECONDS (24.2-38.5)
[2020-07-31 14:32] LABS: D-DIMER QUANT 754.72 ng/ml (<500)
[2020-07-31 14:38] LABS: ERYTHROCYTE SEDIMENTATION RATE 35 mm/hr (0-20)
[2020-07-31 14:48] LABS: ALBUMIN 3.3 GM/DL (3.2-5.2); ALT/SGPT 14 U/L (12-78); BILIRUBIN,DIRECT 0.1 MG/DL (0.0-0.2); BILIRUBIN,TOTAL 0.5 MG/DL (0.2-1.0); BLOOD UREA NITROGEN 19 MG/DL (7-18); C REACTIVE PROTEIN QUANTITATIV 0.99 MG/DL (0.00-0.30); CALCIUM LEVEL 8.7 MG/DL (8.8-10.2); CARBON DIOXIDE LEVEL 28 MEQ/L (21-32); CHLORIDE LEVEL 105 MEQ/L (98-107); CK-MB VALUE MASS < 1.0 NG/ML (<3.6); CPK CREATINE PHOSPHOKINASE 61 U/L (39-308); GLOMERULAR FILTRATION RATE > 60.0 (>42); GLUCOSE, FASTING 89 MG/DL (70-100); MB/CK RELATIVE INDEX 1.64 (< OR =4); NT-PRO BNP 50 PG/ML (<450); POTASSIUM SERUM 4.4 MEQ/L (3.5-5.1); SODIUM LEVEL 138 MEQ/L (136-145); TOTAL PROTEIN 6.7 GM/DL (6.4-8.2); TROPONIN I < 0.02 NG/ML (< 0.10)
[2020-07-31] MEDS ORDERED: diphenhydrAMINE 50MG/ML VIAL (J1200) IV STA (15:52)
[2020-07-31] MEDS ORDERED: methylPREDNISolone 125MG 2ML VIAL IV ONE (15:55)
[2020-07-31] MEDS ORDERED: ISOVUE-370 76% 100ML VIAL As Ordered ONE (17:15)
--- NOTE | 2020-07-31 18:49 | REPVR ---
PROCEDURE INFORMATION: Exam: CTA Chest With Contrast Exam date and time: 07/31/2020 5:26 PM Age: 74 years old Clinical indication: Shortness of breath; Additional info: Shortness of breath, RO pe TECHNIQUE: Imaging protocol: Computed tomographic angiography of the chest with contrast. 3D rendering (Not supervised by radiologist): MIP and/or 3D reconstructed images were created by the technologist. Radiation optimization: All CT scans at this facility use at least one of these dose optimization techniques: automated exposure control; mA and/or kV adjustment per patient size (includes targeted exams where dose is matched to clinical indication); or iterative reconstruction. Contrast material: ISOVUE 370; Contrast volume: 75 ml; Contrast route: INTRAVENOUS (IV); COMPARISON: CR Chest, 2 view PA, Lat 07/31/2020 1:44 PM FINDINGS: Pulmonary arteries: There is no evidence of filling defects within the pulmonary arterial circulation to suggest pulmonary embolism. Aorta: Ascending thoracic aorta measures 3.8 cm AP which is upper limits of normal. No aortic dissection. There appears to be thickening the wall of the aortic arch and descending thoracic aorta measuring up to 7.2 mm in width. Lungs: No lung consolidation. Pleural spaces: No pleural effusion. Heart: No cardiomegaly or pericardial effusion. Lymph nodes: Unremarkable. No enlarged lymph nodes. Bones/joints: Skeletal degeneration. Soft tissues: Unremarkable. Other findings: No significant findings in the upper abdomen. IMPRESSION: 1. No evidence of pulmonary emboli, congestive heart failure or pneumonia. 2. There is mild diffuse thickening of the wall of the thoracic aorta which measures up to 7.2 mm in width which may be due to atherosclerosis however there is only mild amount of calcified atheromatous plaque therefore aortitis is within the differential which can be due to infectious or noninfectious inflammatory disease among other etiologies. Electronically signed by: Kaylen Lott On 07/31/2020 18:49:51 PM
[2020-07-31 19:04] VITALS: BP 150/74
[2020-07-31] MEDS ORDERED: LASI20TA3 PO ×2 (19:10→19:26)
--- NOTE | 2020-08-02 05:07 | ECGEPIP ---
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
== END 2020-07-31 19:20 | disposition home or self-care (01) ==
LOC: M ED 12:17
DX: M71.21 Synovial cyst of popliteal space [Baker], right knee (principal); R60.0 Localized edema; G47.33 Obstructive sleep apnea (adult) (pediatric); K21.9 Gastro-esophageal reflux disease without esophagitis; I10 Essential (primary) hypertension; E78.5 Hyperlipidemia, unspecified
CPT/HCPCS: 71046; 71275; 80048; 80076; 81001; 82550; 82553; 83880; 84484; 85025; 85379; 85610; 85652; 85730; 86140; 93005; 93041; 93971; 94760; 96374; 96375; 99284; J1200; J2930; Q9967

== ENCOUNTER → 2020-08-09 | Outpatient (CLI) | payer MEDICARE, OTHER ==
[~2020-08-09] MED LIST changes: +LASI20TA3 PO
--- NOTE | 2020-08-09 12:22 | REP ---
INDICATION: PAIN IN RIGHT KNEE. COMPARISON: None. TECHNIQUE: Standing bilateral PA view of the knees and standing lateral view of the right knee with right knee sunrise view FINDINGS: The standing bilateral view shows bilateral medial compartmental narrowing. The standing lateral view of the right knee and sunrise view of the right knee shows asymmetric patellofemoral joint space narrowing and osteophytosis of the articular surface of the patella which is mild. No acute fracture, dislocation, or subluxation is seen in any portion of the exam. IMPRESSION: Chronic changes as described above. <Electronically signed by Luc Alcala > 08/09/20 [id number]
== END ==
LOC: M SOG 09:17
PROVIDERS: ATTEND Orthopaedic Surgery Adult Reconstructive Orthopaedic Surgery
DX: M17.11 Unilateral primary osteoarthritis, right knee (principal); M25.561 Pain in right knee

== ENCOUNTER → 2021-09-04 | Outpatient (CLI) | payer MEDICARE, OTHER ==
[~2021-09-04] MED LIST changes: -LISI-898 PO; +LISI5TAB11 PO; -OMEP-221 PO; +OMEP40CA5 PO
[2021-09-04 11:12] LABS: BASO # 0.1 10^3/uL (0.0-0.2); BASO % 1.1 % (0.0-1.0); EOS # 0.2 10^3/uL (0.0-0.5); HEMATOCRIT 40.9 % (42.0-52.0); LYMPH # 1.4 10^3/uL (1.5-5.0); MEAN CORPUSCULAR HEMOGLOBIN 31.4 pg (27.0-33.0); MEAN CORPUSCULAR HGB CONC 31.8 g/dl (32.0-36.5); MEAN CORPUSCULAR VOLUME 98.8 fl (80.0-96.0); MONO # 0.6 10^3/uL (0.0-0.8); MONO % 10.3 % (2.0-8.0); NEUTROPHILS # 3.2 10^3/uL (1.5-8.5); NEUTROPHILS % 59.4 % (36.0-66.0); PLATELET COUNT, AUTOMATED 236 10^3/uL (150-450); RED BLOOD COUNT 4.14 10^6/uL (4.30-6.10); WHITE BLOOD COUNT 5.4 10^3/uL (4.0-10.0)
[2021-09-04 17:52] LABS: ALBUMIN 3.5 GM/DL (3.2-5.2); ALT/SGPT 15 U/L (12-78); BILIRUBIN,TOTAL 0.7 MG/DL (0.2-1.0); BLOOD UREA NITROGEN 12 MG/DL (7-18); CALCIUM LEVEL 8.7 MG/DL (8.8-10.2); CARBON DIOXIDE LEVEL 29 MEQ/L (21-32); CHLORIDE LEVEL 107 MEQ/L (98-107); CREATININE FOR GFR 1.07 MG/DL (0.70-1.30); FERRITIN 56 NG/ML (26-388); GLOMERULAR FILTRATION RATE > 60.0 (>42); GLUCOSE, FASTING 102 MG/DL (70-100); MAGNESIUM LEVEL 2.4 MG/DL (1.8-2.4); NT-PRO BNP 128 PG/ML (<450); POTASSIUM SERUM 4.5 MEQ/L (3.5-5.1); SODIUM LEVEL 138 MEQ/L (136-145); TOTAL PROTEIN 6.6 GM/DL (6.4-8.2)
[2021-09-05 00:59] LABS: HEMOGLOBIN A1c 5.8 %
[2021-09-06 00:08] LABS: INSULIN LEVEL 11.6 uIU/mL (2.6-24.9)
== END ==
LOC: M PLALAB 08:42
PROVIDERS: ATTEND Family Medicine
DX: E53.8 Deficiency of other specified B group vitamins (principal); I50.32 Chronic diastolic (congestive) heart failure; R73.01 Impaired fasting glucose; K76.9 Liver disease, unspecified

== ENCOUNTER → 2021-09-11 | Outpatient (CLI) | payer MEDICARE, OTHER | LOC: M WHC 08:10 | PROVIDERS: ATTEND Family Medicine | DX: K76.9 Liver disease, unspecified (principal) ==

== ENCOUNTER → 2021-10-27 | Outpatient (CLI) | payer MEDICARE, OTHER | LOC: M CARPUL 10:12 | PROVIDERS: ATTEND Family Medicine | DX: I77.810 Thoracic aortic ectasia (principal); I35.8 Other nonrheumatic aortic valve disorders; I36.8 Other nonrheumatic tricuspid valve disorders ==

== ENCOUNTER → 2021-11-04 | Outpatient (CLI) | payer MEDICARE, OTHER | LOC: M RAD 10:29 | PROVIDERS: ATTEND Physician Assistant | DX: M19.011 Primary osteoarthritis, right shoulder (principal); S46.001A Unspecified injury of muscle(s) and tendon(s) of the rotator cuff of right shoulder, initial encounter ==

== ENCOUNTER → 2021-11-04 | Outpatient (REF) | payer MEDICARE, OTHER | LOC: M WUC 18:24 | PROVIDERS: ATTEND Physician Assistant | DX: N39.0 Urinary tract infection, site not specified (principal) ==

== ENCOUNTER → 2022-10-04 | Outpatient (CLI) | payer MEDICARE, OTHER | LOC: M SLEEP 20:00 | PROVIDERS: ATTEND Nurse Practitioner Adult Health | DX: G47.33 Obstructive sleep apnea (adult) (pediatric) (principal) ==